=== PATIENT | male | born 1995 | race Caucasian/White ===

== ENCOUNTER 2023-10-04 08:00 | Outpatient (CLI) | payer BC ==
--- NOTE | 2023-10-04 14:41 | XRAY Report ---
PROCEDURE: Lumbar Spine 2-3V INDICATIONS: LUMBAGO TECHNIQUE: 2 views of the lumbar spine were acquired. COMPARISON: None. FINDINGS: Bones: 5 [id number] vertebrae are present. There is normal bony alignment. No vertebral body compression fractures. No suspicious bony lesions. Soft tissues: Overlying bowel gas pattern is normal. No suspicious soft tissue calcifications. IMPRESSION: Lumbar spine radiographs are within normal limits. Reviewed by: David Kimble MD on 10/04/2023 2:40 PM PST Approved by: David Kimble MD on 10/04/2023 2:40 PM PST Station ID: [id number]
== END 2023-10-04 23:59 | disposition home or self-care (01) ==
LOC: DI.S 08:00
PROVIDERS: ATTEND Physician Assistant
DX: M54.50 Low back pain, unspecified (principal)

== ENCOUNTER 2023-10-18 07:36 | Outpatient (CLI) | payer BC ==
[2023-10-18 15:20] LABS: BASOPHILS # (AUTO) 0.1 10^3/uL (0.0-0.1); BASOPHILS % (AUTO) 0.8 %; EOSINOPHILS # (AUTO) 0.4 10^3/uL (0.0-0.7); EOSINOPHILS % (AUTO) 4.8 %; HGB - HEMOGLOBIN 15.3 g/dL (14.0-18.0); LYMPHOCYTES # (AUTO) 1.9 10^3/uL (1.5-3.5); LYMPHOCYTES % (AUTO) 24.1 %; MEAN CORPUSCULAR HEMOGLOBIN 33.2 pg (27.0-31.0); MEAN CORPUSCULAR VOLUME 97.6 fL (80.0-94.0); MEAN PLATELET VOLUME 10.7 fL (7.4-11.4); MONOCYTES # (AUTO) 0.6 10^3/uL (0.0-1.0); MONOCYTES % (AUTO) 7.3 %; NEUTROPHILS # (AUTO) 4.9 10^3/uL (1.5-6.6); NEUTROPHILS % (AUTO) 61.6 %; PLT - PLATELET COUNT 272 10^3/uL (130-450); RED BLOOD COUNT 4.61 10^6/uL (4.70-6.10); RED CELL DISTRIBUTION WIDTH 12.5 % (12.0-15.0); WHITE BLOOD COUNT 7.9 x10^3/uL (4.8-10.8)
[2023-10-18 15:38] LABS: RHEUMATOID FACTOR NEGATIVE (Negative)
[2023-10-18 15:58] LABS: ALBUMIN 4.8 g/dL (3.2-5.5); ALBUMIN/GLOBULIN RATIO 1.9 (1.0-2.2); ALKALINE PHOSPHATASE 62 IU/L (42-121); ALT ALANINE AMINOTRANSFERASE 77 IU/L (10-60); AST ASPARTATE AMINOTRANSFERASE 30 IU/L (10-42); BILIRUBIN,TOTAL 0.5 mg/dL (0.2-1.0); BUN - BLOOD UREA NITROGEN 15 mg/dL (6-20); CALCIUM 10.1 mg/dL (8.5-10.3); CARBON DIOXIDE - CO2 28 mmol/L (21-32); CHLORIDE 99 mmol/L (101-111); CHOL/HDL RATIO 7.5 (<5.0); CHOLESTEROL 300 mg/dL; CRP - C-REACTIVE PROTEIN < 0.5 mg/dL (<0.5); GFR - MDRD 90 (>89); GLUCOSE 81 mg/dL (74-104); HDL CHOLESTEROL 40 mg/dL; POTASSIUM 4.2 mmol/L (3.5-4.5); SODIUM 136 mmol/L (135-145); TOTAL PROTEIN 7.3 g/dL (6.4-8.9)
[2023-10-18 16:12] LABS: TRIGLYCERIDES 1109 mg/dL (48-352)
[2023-10-18 17:26] LABS: LDL CHOLESTEROL,DIRECT 184 mg/dL (75-193); LDLD/HDL RATIO 4.6 (<3.6)
[2023-10-19 18:07] LABS: ANTI-DNA (DS) AB QN <1 IU/mL (0-9)
[2023-10-22 14:09] LABS: ANTINUCLEAR ANTIBODIES IFA Negative (.)
== END 2023-10-18 07:37 | disposition home or self-care (01) ==
LOC: LAB.S 07:36
PROVIDERS: ATTEND Physician Assistant Medical
DX: F10.10 Alcohol abuse, uncomplicated (principal); Z13.9 Encounter for screening, unspecified; Z77.098 Contact with and (suspected) exposure to other hazardous, chiefly nonmedicinal, chemicals; K63.9 Disease of intestine, unspecified
CPT/HCPCS: 36415; 80053; 80061; 81599; 82480; 83721; 84443; 85025; 85651; 86038; 86140; 86200; 86225; 86430

== ENCOUNTER 2023-12-13 05:39 | Emergency (ER) | payer BC ==
[2023-12-13 05:59] VITALS: O2SAT 98
[2023-12-13 06:19] LABS: BASOPHILS % (AUTO) 0.6 %; EOSINOPHILS # (AUTO) 0.4 10^3/uL (0.0-0.7); EOSINOPHILS % (AUTO) 6.2 %; HCT - HEMATOCRIT 44.4 % (42.0-52.0); LYMPHOCYTES # (AUTO) 1.9 10^3/uL (1.5-3.5); LYMPHOCYTES % (AUTO) 28.4 %; MEAN CORPUSCULAR HEMOGLOBIN 32.5 pg (27.0-31.0); MEAN CORPUSCULAR HGB CONC 33.8 g/dL (32.0-36.0); MEAN CORPUSCULAR VOLUME 96.1 fL (80.0-94.0); MEAN PLATELET VOLUME 9.9 fL (7.4-11.4); MONOCYTES # (AUTO) 0.6 10^3/uL (0.0-1.0); MONOCYTES % (AUTO) 8.3 %; NEUTROPHILS # (AUTO) 3.6 10^3/uL (1.5-6.6); PLT - PLATELET COUNT 282 10^3/uL (130-450); RED BLOOD COUNT 4.62 10^6/uL (4.70-6.10); RED CELL DISTRIBUTION WIDTH 12.3 % (12.0-15.0); WHITE BLOOD COUNT 6.6 x10^3/uL (4.8-10.8)
[2023-12-13 06:31] LABS: ALBUMIN/GLOBULIN RATIO 1.8 (1.0-2.2); BILIRUBIN,TOTAL 0.5 mg/dL (0.2-1.0); CALCIUM 10.2 mg/dL (8.5-10.3); CREATININE 0.9 mg/dL (0.6-1.3); POTASSIUM 3.9 mmol/L (3.5-4.5); TOTAL PROTEIN 7.8 g/dL (6.4-8.9)
--- NOTE | 2023-12-13 06:43 | ED Physician Documentation ---
PD HPI ABD PAIN - Stated complaint Stated Complaint: HIGH BP/CROHNS DISEASE FLARE UP - Chief complaint Chief Complaint: Abd Pain - History obtained from History obtained from: Patient - Additional information Additional information: 28yM with pmh crohns / UC p/w nbnb n/v and nonbloody diarrhea X 4 days with diffuse 9/10 abdominal pain. denies fever, back pain, urinary sx. Review of Systems Constitutional: reports: Fatigue. denies: Fever, Chills Cardiac: denies: Chest pain / pressure Respiratory: denies: Dyspnea GI: reports: Abdominal Pain, Nausea, Vomiting, Diarrhea. denies: Constipation : denies: Dysuria PD PAST MEDICAL HISTORY - Past Medical History Past Medical History: Yes Cardiovascular: Hypertension Respiratory: Asthma GI: Ulcerative colitis, Crohn's disease - Past Surgical History Past Surgical History: No - Present Medications Home Medications: Ambulatory Orders Medication Instructions Recorded Confirmed Atorvastatin Calcium 40 mg PO DAILY 12/13/23 12/13/23 Ondansetron Odt [Zofran Odt] 4 mg TL Q6H PRN #10 tablet 12/13/23 Tizanidine HCl 4 mg PO QPM 12/13/23 12/13/23 predniSONE [Prednisone 21-TAB dose 60 mg PO QDAC 6 Days #21 tab 12/13/23 pack] - Allergies Allergies/Adverse Reactions: Allergies Allergy/AdvReac Type Severity Reaction Status Date / Time amoxicillin Allergy Anaphylaxis Verified 12/13/23 05:53 clarithromycin [From Biaxin] Allergy Anaphylaxis Verified 12/13/23 05:53 Sulfa (Sulfonamide Allergy Anaphylaxis Verified 12/13/23 05:53 Antibiotics) - Social History Does the pt smoke?: No Smoking Status: Never smoker Does the pt drink ETOH?: Yes ETOH Use: Beer Does the pt have substance abuse?: No - Immunizations Immunizations are current?: Yes - POLST Patient has POLST: No PD ED PE NORMAL - Vitals Vital signs reviewed: Yes - General General: Alert and oriented X 3, No acute distress, Well developed/nourished - HEENT HEENT: Atraumatic, PERRL, EOMI - Neck Neck: Supple, no meningeal sign - Cardiac Cardiac: RRR - Respiratory Respiratory: Clear bilaterally - Abdomen Abdomen: Non tender, Non distended, Other (diffuse discomfort to palpation) Results - Vitals Vitals: Vital Signs - 24 hr 12/13/23 05:49 Temperature 36.1 C L Heart Rate 79 Respiratory 16 Rate Blood Pressure 152/91 H O2 Saturation 98 Oxygen O2 Source Room air - Labs Labs: Laboratory Tests 12/13/23 12/13/23 06:08 06:08 WBC 6.6 RBC 4.62 L Hgb 15.0 Hct 44.4 MCV 96.1 H MCH 32.5 H MCHC 33.8 RDW 12.3 Plt Count 282 MPV 9.9 Neut # (Auto) 3.6 Lymph # (Auto) 1.9 [place] # (Auto) 0.6 Eos # (Auto) 0.4 Baso # (Auto) 0.0 Absolute Nucleated RBC 0.00 Nucleated RBC % 0.0 Sodium 139 Potassium 3.9 Chloride 103 Carbon Dioxide 28 Anion Gap 8.0 BUN 12 Creatinine 0.9 Estimated GFR (MDRD) 101 Glucose 96 Calcium 10.2 Total Bilirubin 0.5 AST 38 ALT 88 H Alkaline Phosphatase 74 Total Protein 7.8 Albumin 5.0 Globulin 2.8 Albumin/Globulin Ratio 1.8 Lipase 30 PD Medical Decision Making - ED course ED course: 28yM p/w 4 days of n/v/d he attributes to a flare of his IBD. IV morphine provided with relief of pain. Zofran, pepcid, ivf for n/v with improvement. cbc, abdominal panel negative. plan to f/u outpatient with pcp and gi. Return precautions given. Departure - Departure Disposition: 01 Home, Self Care Clinical Impression: Abdominal pain, Diarrhea, Vomiting Condition: Stable Instructions: ED Colitis Ulcerative Prescriptions: predniSONE [Prednisone 21-TAB dose pack] 60 mg PO QDAC 6 Days #21 tab Ondansetron Odt [Zofran Odt] 4 mg TL Q6H PRN #10 tablet PRN Reason: Nausea / Vomiting Comments: You were seen in the emergency department for IBD flare. Prescriptions sent electronically to [facility] pharmacy. Please follow-up with your primary care provider and GI and return to the emergency department if you have any new or worsening symptoms or other concerns. Forms: PCP List
[2023-12-13] MEDS: FAMOTIDINE 20 MG/2 ML VIAL IVP STA (07:01)
[2023-12-13] MEDS: SODIUM CHLORIDE 0.9% 1,000 ML IV STA (07:01)
[2023-12-13] MEDS: MORPHINE 2 MG/ML CARPUJECT IVP STA (07:02)
[2023-12-13] MEDS: ONDANSETRON 4 MG/2 ML VIAL IVP STA (07:02)
[2023-12-13 08:36] VITALS: BP 142/97
== END 2023-12-13 08:36 | disposition home or self-care (01) ==
LOC: ED 05:39
DX: K63.9 Disease of intestine, unspecified (principal)
CPT/HCPCS: 36415; 80053; 83690; 85025; 96374; 99284

== ENCOUNTER 2024-01-23 08:00 | Outpatient (CLI) | payer BC ==
--- NOTE | 2024-01-23 10:17 | XRAY Report ---
PROCEDURE: Chest 2V INDICATIONS: ACUTE COUGH/ASTHMA/WHEEZING TECHNIQUE: 2 views of the chest were acquired. COMPARISON: None. FINDINGS: Surgical changes and devices: None. Lungs and pleura: No pleural effusions or pneumothorax. Lungs are clear. Mediastinum: Mediastinal contours appear normal. Heart size is normal. Bones and chest wall: No suspicious bony lesions. Overlying soft tissues appear unremarkable. IMPRESSION: No acute cardiopulmonary process. Reviewed by: Ruddy Angela MD on 01/23/2024 10:16 AM PDT Approved by: Ruddy Angela MD on 01/23/2024 10:16 AM PDT Station ID: [id number]
== END 2024-01-23 23:59 | disposition home or self-care (01) ==
LOC: DI.S 08:00
PROVIDERS: ATTEND Registered Nurse
DX: J45.901 Unspecified asthma with (acute) exacerbation (principal); R05.1 Acute cough

== ENCOUNTER 2024-03-18 09:37 | Emergency (ER) | payer BC ==
--- NOTE | 2024-03-18 10:31 | ED Physician Documentation ---
PD HPI ABD PAIN - Stated complaint Stated Complaint: GI,POST OP - Chief complaint Chief Complaint: Abd Pain - History obtained from History obtained from: Patient - History of Present Illness Timing - onset: Yesterday Timing - duration: Days (1/2) Timing - details: Gradual onset, Still present Quality: Cramping, Aching, Pain Location: Periumbilical, RLQ, LLQ Associated symptoms: Nausea, Vomiting, Hematochezia (he did note some red blood per rectum, est about 1/2 cup in total overnight/this moqqqqqqqqqqqqqqqqqqqqqqqqqqqqqqqqqqqqqqqqqqqqqqqqqqqqqqqqqqqqqqqqqqqqqqqqqqq), Loss of appetite. No: Hematemesis, Near syncope / syncope Recently seen: Surgery (he has history of possible crohns and was mild for several years, but with abd pains more recently. Got referral to GI and had EGD/coonscopy yesterday at [facility]. Enroute home, pt developed cramping pain and some distendness. Increased severely into today.) Review of Systems Constitutional: denies: Fever, Chills Nose: denies: Rhinorrhea / runny nose, Congestion Throat: denies: Sore throat Respiratory: denies: Cough GI: reports: Abdominal Pain, Nausea, Vomiting PD PAST MEDICAL HISTORY - Past Medical History Past Medical History: Yes Cardiovascular: Hypertension Respiratory: Asthma GI: Ulcerative colitis, Crohn's disease - Past Surgical History Past Surgical History: Yes General: Colonoscopy - Present Medications Home Medications: Ambulatory Orders Medication Instructions Recorded Confirmed Atorvastatin Calcium 40 mg PO DAILY 12/13/23 12/13/23 Ondansetron Odt [Zofran Odt] 4 mg TL Q6H PRN #10 tablet 12/13/23 Tizanidine HCl 4 mg PO QPM 12/13/23 12/13/23 predniSONE [Prednisone 21-TAB dose 60 mg PO QDAC 6 Days #21 tab 12/13/23 pack] Dicyclomine [Bentyl] 10 mg PO QID PRN #20 cap 03/18/24 Oxycodone HCl/Acetaminophen 1 each PO Q6H PRN #14 tablet 03/18/24 [Percocet 5-325 mg Tablet] Sucralfate [Carafate] 1 gm PO ACHS 5 Days #200 ml 03/18/24 dexAMETHasone [Decadron] 4 mg PO DAILY #5 tablet 03/18/24 - Allergies Allergies/Adverse Reactions: Allergies Allergy/AdvReac Type Severity Reaction Status Date / Time amoxicillin Allergy Anaphylaxis Verified 03/18/24 09:59 clarithromycin [From Biaxin] Allergy Anaphylaxis Verified 03/18/24 09:59 Sulfa (Sulfonamide Allergy Anaphylaxis Verified 03/18/24 09:59 Antibiotics) - Social History Does the pt smoke?: No Smoking Status: Never smoker Does the pt drink ETOH?: Yes Does the pt have substance abuse?: Yes Substance Use and Type: Marijuana - Immunizations Immunizations are current?: Yes - POLST Patient has POLST: No PD ED PE NORMAL - Vitals Vital signs reviewed: Yes - General General: Alert and oriented X 3, Well developed/nourished - Cardiac Cardiac: RRR, No murmur - Abdomen Abdomen: Soft, Other (some distension without taughtness and general abd te nderness to percussion. Bowel sounds diminished. Rectal exam deferred. ) Results - Vitals Vitals: Vital Signs - 24 hr 03/18/24 03/18/24 03/18/24 09:52 11:59 14:12 Temperature 36.3 C L Heart Rate 84 69 81 Respiratory 22 15 14 Rate Blood Pressure 152/89 H 147/84 H 137/96 H O2 Saturation 100 100 99 Oxygen O2 Source Room air - Labs Labs: Laboratory Tests 03/18/24 03/18/24 03/18/24 11:12 11:12 12:21 WBC 6.2 RBC 4.56 L Hgb 14.5 Hct 42.4 MCV 93.0 MCH 31.8 H MCHC 34.2 RDW 12.1 Plt Count 246 MPV 10.0 Neut # (Auto) 3.7 Lymph # (Auto) 1.8 [place] # (Auto) 0.5 Eos # (Auto) 0.2 Baso # (Auto) 0.0 Absolute Nucleated RBC 0.00 Nucleated RBC % 0.0 Sodium 136 Potassium 4.1 Chloride 103 Carbon Dioxide 25 Anion Gap 8.0 BUN 14 Creatinine 1.2 Estimated GFR (MDRD) 73 L Glucose 101 Calcium 10.7 H Total Bilirubin 0.9 AST 24 ALT 48 Alkaline Phosphatase 57 Total Protein 7.6 Albumin 5.0 Globulin 2.6 Albumin/Globulin Ratio 1.9 Lipase 21 Urine Color YELLOW Urine Clarity CLEAR Urine pH 7.5 Ur Specific [place] 1.020 Urine Protein NEGATIVE Urine Glucose (UA) NEGATIVE Urine Ketones NEGATIVE Urine Occult Blood NEGATIVE Urine Nitrite NEGATIVE Urine Bilirubin NEGATIVE Urine Urobilinogen 0.2 (NORMAL) Ur Leukocyte Esterase NEGATIVE Ur Microscopic Review NOT INDICATED Urine Culture Comments NOT INDICATED - Rads (name of study) abd/pelvic CT Relevant Findings:: Prelim report reviewed (no free air nor free fluid. No obstruction pattern. ), EMP independent interpretation of test PD Medical Decision Making - ED course Complexity details: reviewed results, re-evaluated patient (he is having stepwise improvement with IV meds. ), considered differential (EGD and colonoscopy yesterday with onset of lower abd pain enroute home and steadily worsened; increased more into today. Highest concern would be perforation with biopsies. Pt states worst pain he has had compared to prior crohns ), d/w patient Departure - Departure Disposition: Home, Self Care Clinical Impression: Lower abdominal pain, GI bleeding, Colonoscopy causing post-procedural bleeding Condition: Stable Record reviewed to determine appropriate education?: Yes Prescriptions: Dicyclomine [Bentyl] 10 mg PO QID PRN #20 cap PRN Reason: Abdominal Pain Sucralfate [Carafate] 1 gm PO ACHS 5 Days #200 ml dexAMETHasone [Decadron] 4 mg PO DAILY #5 tablet Oxycodone HCl/Acetaminophen [Percocet 5-325 mg Tablet] 1 each PO Q6H PRN #14 tablet PRN Reason: pain Comments: Your CT scan does not show any signs of perforation, internal bleeding, abscess. Your blood count is good so even if you have a bit more bleeding from the biopsy sites, you have "room to spare". That said if you do have a large amount of blood out and are feeling increased cramps or pains or lightheaded, return to the ER. Otherwise there may be some still amount of bleeding that occurs through the day today. Commonly it would stop with a bit of time. Stay well-hydrated. It does sound like the procedures did rile up your inflammatory bowel disease. We can go with some antispasmodic for the smooth and intestinal muscle called dicyclomine/Bentyl. Also for the upper stomach irritation, continue with your pantoprazole and add sacral fate 4 times daily over the next several days. Tylenol 500 to 650 mg every 4-6 hours if needed for pains. Add oxycodone every 6 hours if needed for pain in the short-term. I would anticipate needing this just in the short term, next couple of days. At [place] anti-inflammatory presuming some increase in your autoimmune IBD/Crohn's. Contact your new GI provider and let the office know the circumstances and that you are here and if they have any further advice or want to follow-up in the next few days. I sent your prescriptions to your preferred pharmacy. I am prescribing a short course of narcotic pain medication for you. These are potentially dangerous and addictive medications that should be used carefully. These medications may constipate you. Take an ztzv-ioi-[id number] stool softener such as docusate twice daily with plenty of water while taking these medications. If you go 24 hours without a bowel movement, take [id number] MiraLAX, per package instructions. Do not drink or drive while taking these medications. If you received narcotic or sedating medications while in the emergency department do not drive for 24 hours. Store this medication in a safe, secure place and out of reach of children. It is a violation of federal law to give or sell this medication to another person or to use in a manner other than prescribed. The ED will not refill narcotic prescriptions, including prescriptions lost or stolen. You can dispose of unwanted medications at the [facility]'s office or at several pharmacies such as [facility]. Forms: PCP List Discharge Date/Time: 03/18/24 14:52
[2024-03-18] MEDS: KETOROLAC 15 MG/ML VIAL IVP STA (11:14)
[2024-03-18] MEDS: SODIUM CHLORIDE 0.9% 1,000 ML IV STA (11:14)
[2024-03-18] MEDS: FAMOTIDINE 20 MG/2 ML VIAL IVP STA (11:15)
[2024-03-18] MEDS: ONDANSETRON 4 MG/2 ML VIAL IVP STA (11:15)
[2024-03-18] MEDS: HYDROmorphone 1 MG/ML CARPUJECT IVP STA ×2 (11:15→14:11)
[2024-03-18 11:18] LABS: BASOPHILS % (AUTO) 0.6 %; EOSINOPHILS # (AUTO) 0.2 10^3/uL (0.0-0.7); EOSINOPHILS % (AUTO) 2.9 %; HCT - HEMATOCRIT 42.4 % (42.0-52.0); HGB - HEMOGLOBIN 14.5 g/dL (14.0-18.0); LYMPHOCYTES # (AUTO) 1.8 10^3/uL (1.5-3.5); LYMPHOCYTES % (AUTO) 28.9 %; MEAN CORPUSCULAR HEMOGLOBIN 31.8 pg (27.0-31.0); MEAN CORPUSCULAR HGB CONC 34.2 g/dL (32.0-36.0); MONOCYTES # (AUTO) 0.5 10^3/uL (0.0-1.0); MONOCYTES % (AUTO) 7.9 %; NEUTROPHILS # (AUTO) 3.7 10^3/uL (1.5-6.6); NEUTROPHILS % (AUTO) 59.2 %; PLT - PLATELET COUNT 246 10^3/uL (130-450); RED BLOOD COUNT 4.56 10^6/uL (4.70-6.10); RED CELL DISTRIBUTION WIDTH 12.1 % (12.0-15.0); WHITE BLOOD COUNT 6.2 x10^3/uL (4.8-10.8)
[2024-03-18 11:31] LABS: ALBUMIN/GLOBULIN RATIO 1.9 (1.0-2.2); BILIRUBIN,TOTAL 0.9 mg/dL (0.2-1.0); CALCIUM 10.7 mg/dL (8.5-10.3); CREATININE 1.2 mg/dL (0.6-1.3); POTASSIUM 4.1 mmol/L (3.5-4.5); TOTAL PROTEIN 7.6 g/dL (6.4-8.9)
[2024-03-18] MEDS ORDERED: iohexoL-300 100 ML VIAL ONE (12:02)
[2024-03-18] MEDS: HYDROmorphone 2 MG/ML VIAL IVP STA (12:23)
[2024-03-18 12:32] LABS: BILIRUBIN,URINE NEGATIVE (NEGATIVE); CLARITY,URINE CLEAR (CLEAR); GLUCOSE, URINE (UA) NEGATIVE (NEGATIVE); KETONES,URINE (UA) NEGATIVE (NEGATIVE); LEUKOCYTE ESTERASE, URINE NEGATIVE (NEGATIVE); NITRITE,URINE NEGATIVE (NEGATIVE); OCCULT BLOOD,URINE NEGATIVE (NEGATIVE); PH,URINE 7.5 PH (5.0-7.5); PROTEIN,URINE NEGATIVE (NEGATIVE); UROBILINOGEN,URINE 0.2 (NORMAL) E.U./dL (NORMAL)
[2024-03-18] MEDS: iohexoL-300 100 ML VIAL IVP ONE (13:03)
--- NOTE | 2024-03-18 13:27 | CT Report ---
PROCEDURE: Abdomen/Pelvis W INDICATIONS: Abdominal pain, acute, lower; colonoscopy yest CONTRAST: Omni 300 100ml TECHNIQUE: After the administration of intravenous contrast, a CT scan of the abdomen and pelvis was performed. Images were recorded and evaluated at appropriate window settings. Reformats: coronal and sagittal. F or radiation dose reduction, the following was used: automated exposure control, adjustment of mA and /or kV according to patient size. COMPARISON: None. FINDINGS: Image quality: Diagnostic. Lower chest: Unremarkable. Liver: No solid mass. Gallbladder: Biliary tree: No intrahepatic or extrahepatic dilation, accounting for age. Spleen: No splenomegaly. Pancreas: No pancreatic ductal dilation. Adrenals: No adrenal nodule. Kidneys and ureters: No hydronephrosis. No renal cystic lesion which requires follow up. No solid mas s. Stomach, bowel and peritoneum: No gastric or small bowel dilation. No abnormal wall thickening. No pa thologic free fluid. Scattered diverticula. No inflammatory change. Appendix is normal. Lymph nodes: No central or retroperitoneal adenopathy. Vessels: No infrarenal aortic aneurysm. Patent portal vein. PELVIS Reproductive organs: Unremarkable. Bladder: No abnormal wall thickening, accounting for underdistention. Pelvic lymph nodes: No pelvic adenopathy by size criteria. Bones: No aggressive osseous abnormality. Other: No significant ventral or inguinal hernia. IMPRESSION: Diverticulosis. No acute abdominal or pelvic process. No free air or free fluid. Reviewed by: Fadia Osuna MD on 03/18/2024 1:26 PM PDT Approved by: Fadia Osuna MD on 03/18/2024 1:26 PM PDT Station ID: [id number]
[2024-03-18] MEDS: DICYCLOMINE 10 MG CAPSULE PO STA (14:11)
[2024-03-18] MEDS: SUCRALFATE 1 GM/10 ML UDC PO STA (14:11)
[2024-03-18] MEDS: DEXAMETHASONE 10 MG/ML VIAL IVP STA (14:11)
[2024-03-18 14:19] VITALS: BP 137/96; O2SAT 99
== END 2024-03-18 14:52 | disposition home or self-care (01) ==
LOC: ED 09:37
DX: K92.2 Gastrointestinal hemorrhage, unspecified (principal); K91.841 Postprocedural hemorrhage of a digestive system organ or structure following other procedure; R10.31 Right lower quadrant pain; R10.32 Left lower quadrant pain; I10 Essential (primary) hypertension; K50.90 Crohn's disease, unspecified, without complications; Z79.899 Other long term (current) drug therapy
CPT/HCPCS: 36415; 74177; 80053; 81003; 83690; 85025; 96374; 96375; 99284; 99285; A9270; J1170; Q9967; 81001; 87086

== ENCOUNTER 2024-05-06 14:42 | Emergency (ER) | payer BC ==
[2024-05-06 15:08] VITALS: BP 153/99; O2SAT 97
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
[2024-05-06] MEDS: ACETAMINOPHEN 500 MG TABLET PO STA (15:27)
[2024-05-06] MEDS: KETOROLAC 30 MG/ML VIAL IM STA (15:27)
--- NOTE | 2024-05-06 15:58 | XRAY Report ---
PROCEDURE: Forearm RT INDICATIONS: right wrist pain TECHNIQUE: 2 views of the forearm were acquired. COMPARISON: None. FINDINGS: Bones: No fractures or dislocations. No suspicious bony lesions. Soft tissues: No suspicious soft tissue calcifications or masses. IMPRESSION: No acute bony abnormality. Reviewed by: Ruddy Angela MD on 05/06/2024 3:57 PM PDT Approved by: Ruddy Angela MD on 05/06/2024 3:57 PM PDT Station ID: [id number]
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
== END 2024-05-06 16:25 | disposition home or self-care (01) ==
LOC: ED 14:42
DX: S50.11XA Contusion of right forearm, initial encounter (principal); W20.8XXA Other cause of strike by thrown, projected or falling object, initial encounter; I10 Essential (primary) hypertension; Z79.899 Other long term (current) drug therapy
CPT/HCPCS: 96372; 99283; 99284